=== PATIENT | female | born 1995 | race Caucasian/White ===

== ENCOUNTER 2016-12-28 20:04 | Emergency (ER) | payer OTHER ==
[~2016-12-28] VITALS: Ht 167.6 cm; Wt 140.9 kg
[~2016-12-28 20:04] MED LIST: BIRTH CONTROL IMPLAN; IBUPROFEN800 MG PO; KEFLEX500 MG PO; NAPROSYN500 MG PO; NEXPLANON68 MG SC; OXYCODONE-APAP1 EACH PO; PERCOCET 5/31 TABLET PO; PRENATAL TABLE1 EACH PO; TRI-SPRINTEC1 EACH PO; ZOFRAN ODT8 MG PO
[2016-12-28 21:21] LABS: ADD MIUA? NO; BILIRUBIN NEGATIVE; BLOOD NEGATIVE; COLOR YELLOW ((YELLOW)); GLUCOSE (STRIP) NEGATIVE; KETONES NEGATIVE; LEUKOCYTES NEGATIVE; NITRITE NEGATIVE; PROTEIN (STRIP) NEGATIVE; SPECIFIC GRAVITY 1.018 (1.000-1.030); UCUL ADDED? NO
[2016-12-28 21:30] LABS: HEMATOCRIT 39.8 % (36.0-46.0); MCH 27.7 PG (29.0-34.0); MCHC 32.9 G/DL (30.0-36.0); MCV 84.1 FL (83-99); MEAN PLAT.VOLUME 9.9 uM^3 (9.5-12.4); PLATELET COUNT 303 K/uL (156-360); RBC DIS.WIDTH-CV 13.4 % (11.8-14.6); RBC DIS.WIDTH-SD 41.2 % (39-53); RED BLOOD COUNT 4.73 M/uL (3.80-5.20); WHITE BLOOD COUNT 10.8 K/uL (4.1-10.2)
[2016-12-28 21:40] LABS: CHLORIDE 108 mEq/L (99-109); SODIUM 142 mEq/L (136-147)
[2016-12-28 21:42] LABS: GLUCOSE 106 mg/dL (70-99)
[2016-12-28 21:44] LABS: ANION GAP 10 MEQ/L (2-14); TOTAL BILIRUBIN 0.4 mg/dL (0.0-1.0)
[2016-12-28 21:46] LABS: ALKALINE PHOSPHATASE 78 IU/L (3-129); GFR ESTIMATE (CALCULATED) > 59 mL/min/
[2016-12-28 21:47] LABS: UREA NITROGEN (BUN) 8 mg/dL (9-23)
[2016-12-28 21:55] LABS: QUANTITATIVE HCG < 4.0 MIU/ML
[2016-12-28] MEDS ORDERED: MOTION RELIEF25 MG PO (22:09)
[2016-12-28] MEDS ORDERED: CEFDINIR300 MG PO (22:09)
[2016-12-28 22:42] VITALS: BP 137/76
== END 2016-12-28 22:58 | disposition home or self-care (01) ==
LOC: EME 20:04
DX: H66.92 Otitis media, unspecified, left ear (principal); R42 Dizziness and giddiness
CPT/HCPCS: 80053; 81003; 84702; 85027; 99281; 99284

== ENCOUNTER 2017-05-26 20:13 | Emergency (ER) | payer OTHER ==
[~2017-05-26] VITALS: Ht 167.6 cm; Wt 141.4 kg
[~2017-05-26 20:13] MED LIST changes: +CEFDINIR300 MG PO; +MOTION RELIEF25 MG PO
[2017-05-26 23:40] LABS: HEMATOCRIT 41.9 % (36.0-46.0); MCH 27.3 PG (29.0-34.0); MCHC 32.9 G/DL (30.0-36.0); MEAN PLAT.VOLUME 10.1 uM^3 (9.5-12.4); PLATELET COUNT 300 K/uL (156-360); RBC DIS.WIDTH-CV 13.9 % (11.8-14.6); RBC DIS.WIDTH-SD 41.9 % (39-53); RED BLOOD COUNT 5.05 M/uL (3.80-5.20); WHITE BLOOD COUNT 11.3 K/uL (4.1-10.2)
[2017-05-26 23:52] LABS: CHLORIDE 110 mEq/L (99-109); POTASSIUM 3.7 mEq/L (3.7-5.4); SODIUM 140 mEq/L (136-147)
[2017-05-26 23:55] LABS: GLUCOSE 122 mg/dL (70-99)
[2017-05-26 23:56] LABS: ANION GAP 8 MEQ/L (2-14)
[2017-05-26 23:57] LABS: TOTAL BILIRUBIN 0.5 mg/dL (0.0-1.0)
[2017-05-26 23:58] LABS: ALKALINE PHOSPHATASE 83 IU/L (3-129); GFR ESTIMATE (CALCULATED) > 59 mL/min/
[2017-05-26 23:59] LABS: UREA NITROGEN (BUN) 13 mg/dL (9-23)
[2017-05-26 23:59] LABS: ADD MIUA? YES; BILIRUBIN NEGATIVE; BLOOD NEGATIVE; COLOR YELLOW ((YELLOW)); GLUCOSE (STRIP) NEGATIVE; KETONES NEGATIVE; LEUKOCYTES NEGATIVE; NITRITE NEGATIVE; PROTEIN (STRIP) NEGATIVE; SPECIFIC GRAVITY 1.031 (1.000-1.030)
[2017-05-27 00:02] LABS: LIPASE 3 U/L (1.0-51.0); QUANTITATIVE HCG < 4.0 MIU/ML
[2017-05-27 00:04] LABS: BACTERIA NONE SEEN /HPF; CALCIUM OXALATE CRYSTALS 2+ /HPF; EPITHELIAL CELLS 2+ /HPF; MUCUS TRACE /LPF; RED BLOOD CELLS 0-5 /HPF (0-5); WHITE BLOOD CELLS 0-5 /HPF (0-5)
[2017-05-27] MEDS ORDERED: ZOFRAN ODT4 MG PO (00:17)
[2017-05-27] MEDS ORDERED: BENTYL20 MG PO (00:17)
[2017-05-27 00:32] VITALS: BP 119/70
== END 2017-05-27 00:39 | disposition home or self-care (01) ==
LOC: EME 20:13
PROVIDERS: Nurse Practitioner Family
DX: R10.32 Left lower quadrant pain (principal); R11.2 Nausea with vomiting, unspecified; R42 Dizziness and giddiness
CPT/HCPCS: 80053; 81003; 83690; 84702; 85027; 99281; 99284

== ENCOUNTER 2017-08-12 21:14 | Emergency (ER) | payer OTHER ==
[~2017-08-12] VITALS: Ht 167.6 cm; Wt 142.2 kg
[~2017-08-12 21:14] MED LIST changes: +BENTYL20 MG PO; +ZOFRAN ODT4 MG PO
[2017-08-12 21:37] LABS: HEMATOCRIT 39.5 % (36.0-46.0); HEMOGLOBIN 13.2 G/DL (11.9-15.5); MCH 27.7 PG (29.0-34.0); MCHC 33.4 G/DL (30.0-36.0); MCV 82.8 FL (83-99); PLATELET COUNT 322 K/uL (156-360); RBC DIS.WIDTH-CV 13.8 % (11.8-14.6); RBC DIS.WIDTH-SD 41.6 % (39-53); RED BLOOD COUNT 4.77 M/uL (3.80-5.20)
[2017-08-12 21:46] LABS: CHLORIDE 109 mEq/L (99-109); SODIUM 139 mEq/L (136-147)
[2017-08-12 21:48] LABS: GLUCOSE 108 mg/dL (70-99); TOTAL PROTEIN 6.3 g/dL (6.4-8.3)
[2017-08-12 21:49] LABS: APPEARANCE CLEAR ((CLEAR)); BILIRUBIN NEGATIVE; BLOOD NEGATIVE; COLOR YELLOW ((YELLOW)); GLUCOSE (STRIP) NEGATIVE; KETONES NEGATIVE; LEUKOCYTES NEGATIVE; NITRITE NEGATIVE; PROTEIN (STRIP) NEGATIVE; SPECIFIC GRAVITY 1.024 (1.000-1.030); UCUL ADDED? NO
[2017-08-12 21:50] LABS: TOTAL BILIRUBIN 0.6 mg/dL (0.0-1.0)
[2017-08-12 21:51] LABS: ALKALINE PHOSPHATASE 71 IU/L (3-129)
[2017-08-12 21:52] LABS: CREATININE 0.8 mg/dL (0.6-1.3); GFR ESTIMATE (CALCULATED) > 59 mL/min/
[2017-08-12 21:53] LABS: AST (GOT) 12 IU/L (2-34); UREA NITROGEN (BUN) 9 mg/dL (9-23)
[2017-08-12 21:55] LABS: ALT (GPT) 13 IU/L (3-49)
[2017-08-12 22:00] LABS: QUANTITATIVE HCG 5894.1 MIU/ML
[2017-08-12 22:37] LABS: LIPASE 3 U/L (1.0-51.0)
[2017-08-12] MEDS ORDERED: ZOFRAN4 MG PO (23:48)
[2017-08-12 23:51] VITALS: BP 166/90
== END 2017-08-12 23:52 | disposition home or self-care (01) ==
LOC: EME 21:14 → RME 21:14
DX: O21.9 Vomiting of pregnancy, unspecified (principal); R10.11 Right upper quadrant pain; R10.13 Epigastric pain; M54.9 Dorsalgia, unspecified; Z3A.08 8 weeks gestation of pregnancy
CPT/HCPCS: 76705; 76801; 80053; 81003; 83690; 84702; 85027; 99281; 99284

== ENCOUNTER 2017-09-14 22:11 | Emergency (ER) | payer OTHER ==
[~2017-09-14] VITALS: Ht 167.6 cm; Wt 138.5 kg
[~2017-09-14 22:11] MED LIST changes: +ZOFRAN4 MG PO
[2017-09-14 23:52] LABS: HEMATOCRIT 36.4 % (36.0-46.0); HEMOGLOBIN 12.4 G/DL (11.9-15.5); MCH 28.1 PG (29.0-34.0); MCHC 34.1 G/DL (30.0-36.0); MCV 82.4 FL (83-99); PLATELET COUNT 255 K/uL (156-360); RBC DIS.WIDTH-CV 13.5 % (11.8-14.6); RBC DIS.WIDTH-SD 40.4 % (39-53); RED BLOOD COUNT 4.42 M/uL (3.80-5.20); WHITE BLOOD COUNT 10.6 K/uL (4.1-10.2)
[2017-09-15 00:02] LABS: ALBUMIN 3.8 g/dL (3.2-4.8); CHLORIDE 107 mEq/L (99-109); SODIUM 138 mEq/L (136-147)
[2017-09-15 00:04] LABS: GLUCOSE 99 mg/dL (70-99); TOTAL PROTEIN 6.1 g/dL (6.4-8.3)
[2017-09-15 00:05] LABS: APPEARANCE CLEAR ((CLEAR)); BILIRUBIN NEGATIVE; BLOOD NEGATIVE; COLOR YELLOW ((YELLOW)); GLUCOSE (STRIP) NEGATIVE; KETONES NEGATIVE; LEUKOCYTES TRACE; NITRITE NEGATIVE; PROTEIN (STRIP) NEGATIVE; SPECIFIC GRAVITY 1.027 (1.000-1.030); UROBILINOGEN 0.2 MG/DL (0.2-1.0)
[2017-09-15 00:06] LABS: TOTAL BILIRUBIN 0.9 mg/dL (0.0-1.0)
[2017-09-15 00:07] LABS: ALKALINE PHOSPHATASE 75 IU/L (3-129)
[2017-09-15 00:08] LABS: CREATININE 0.6 mg/dL (0.6-1.3); GFR ESTIMATE (CALCULATED) > 59 mL/min/
[2017-09-15 00:09] LABS: AST (GOT) 10 IU/L (2-34); UREA NITROGEN (BUN) 8 mg/dL (9-23)
[2017-09-15 00:11] LABS: ALT (GPT) 14 IU/L (3-49)
[2017-09-15 00:18] LABS: BACTERIA RARE /HPF; EPITHELIAL CELLS 1+ /HPF; MUCUS 1+ /LPF; RED BLOOD CELLS 0-5 /HPF (0-5); UCUL ADDED? YES
[2017-09-15] MEDS ORDERED: ZOFRAN ODT4 MG PO (01:37)
[2017-09-15] MEDS ORDERED: DICLEGIS DR 101 EACH PO (01:37)
[2017-09-15] MEDS ORDERED: KEFLEX500 MG PO (01:40)
[2017-09-15 01:51] VITALS: BP 124/83
== END 2017-09-15 01:51 | disposition home or self-care (01) ==
LOC: EME 22:11
PROVIDERS: Physician Assistant
DX: O21.9 Vomiting of pregnancy, unspecified (principal); O23.41 Unspecified infection of urinary tract in pregnancy, first trimester; Z3A.10 10 weeks gestation of pregnancy
CPT/HCPCS: 80053; 81003; 85027; 87086; 87502; 99281; 99285; J2405; J7030

== ENCOUNTER 2017-12-03 19:59 | Emergency (ER) | payer OTHER ==
[~2017-12-03] VITALS: Ht 172.7 cm; Wt 138.6 kg
[~2017-12-03 19:59] MED LIST changes: +DICLEGIS DR 101 EACH PO
[2017-12-03 20:52] LABS: HEMATOCRIT 34.4 % (36.0-46.0); HEMOGLOBIN 11.7 G/DL (11.9-15.5); MCH 28.1 PG (29.0-34.0); MCV 82.5 FL (83-99); PLATELET COUNT 257 K/uL (156-360); RBC DIS.WIDTH-CV 13.9 % (11.8-14.6); RBC DIS.WIDTH-SD 41.5 % (39-53); RED BLOOD COUNT 4.17 M/uL (3.80-5.20); WHITE BLOOD COUNT 12.3 K/uL (4.1-10.2)
[2017-12-03 21:11] LABS: CHLORIDE 108 MEQ/L (99-109); POTASSIUM 3.7 MEQ/L (3.7-5.4); SODIUM 139 MEQ/L (136-147)
[2017-12-03 21:17] LABS: CREATININE 0.7 MG/DL (0.6-1.3); GFR ESTIMATE (CALCULATED) > 59 mL/min/; GLUCOSE 107 mg/dL (70-99); UREA NITROGEN (BUN) 6 mg/dL (9-23)
[2017-12-03] MEDS ORDERED: PRENATAL TABLE1 EAC3 PO (22:19)
[2017-12-03] MEDS ORDERED: VENTOLIN HFA18 GM IH (22:27)
[2017-12-03] MEDS ORDERED: AMOXICILLIN875 MG PO (22:27)
[2017-12-03 22:39] VITALS: BP 120/70
== END 2017-12-03 22:39 | disposition home or self-care (01) ==
LOC: EME 19:59
DX: O99.512 Diseases of the respiratory system complicating pregnancy, second trimester (principal); J06.9 Acute upper respiratory infection, unspecified; Z3A.22 22 weeks gestation of pregnancy; Z87.891 Personal history of nicotine dependence; Z90.49 Acquired absence of other specified parts of digestive tract; Z88.7 Allergy status to serum and vaccine
CPT/HCPCS: 71046; 80048; 85027; 99281; 99284

== ENCOUNTER 2017-12-11 23:28 | Emergency (ER) | payer OTHER ==
[~2017-12-11] VITALS: Ht 172.7 cm; Wt 138.9 kg
[~2017-12-11 23:28] MED LIST changes: +AMOXICILLIN875 MG PO; +PRENATAL TABLE1 EAC3 PO; +VENTOLIN HFA18 GM IH
[2017-12-12 00:51] LABS: APPEARANCE CLEAR ((CLEAR)); BILIRUBIN NEGATIVE; BLOOD NEGATIVE; COLOR YELLOW ((YELLOW)); GLUCOSE (STRIP) NEGATIVE; KETONES NEGATIVE; LEUKOCYTES NEGATIVE; NITRITE NEGATIVE; PROTEIN (STRIP) NEGATIVE; SPECIFIC GRAVITY 1.028 (1.000-1.030); UCUL ADDED? NO
[2017-12-12 01:56] VITALS: BP 93/68
== END 2017-12-12 02:01 | disposition home or self-care (01) ==
LOC: EME 23:28
PROVIDERS: Emergency Medicine
DX: O99.89 Other specified diseases and conditions complicating pregnancy, childbirth and the puerperium (principal); R10.32 Left lower quadrant pain; M54.5 Low back pain; Z3A.24 24 weeks gestation of pregnancy; Z88.7 Allergy status to serum and vaccine
CPT/HCPCS: 76805; 81003; 99281; 99284

== ENCOUNTER 2018-01-05 17:31 | Outpatient (CLI) | payer OTHER ==
[~2018-01-05] VITALS: Ht 172.7 cm; Wt 137.8 kg
[2018-01-05 17:43] VITALS: BP 106/52
[2018-01-05 17:44] VITALS: BP 106/52
[2018-01-05 19:05] VITALS: BP 106/49
== END 2018-01-05 23:32 | disposition home or self-care (01) ==
LOC: LDRP-OP 17:31 → 2WEST 17:33 → LDRP-OP 05-13 08:39
DX: O9A.212 Injury, poisoning and certain other consequences of external causes complicating pregnancy, second trimester (principal); Z3A.25 25 weeks gestation of pregnancy; W01.0XXA Fall on same level from slipping, tripping and stumbling without subsequent striking against object, initial encounter; Y93.F9 Activity, other caregiving; Y92.009 Unspecified place in unspecified non-institutional (private) residence as the place of occurrence of the external cause
CPT/HCPCS: 59025; 76805; G0378

== ENCOUNTER 2018-02-19 11:39 | Outpatient (CLI) | payer OTHER ==
[2018-02-19 12:04] VITALS: BP 94/52
[2018-02-19 12:44] LABS: BILIRUBIN NEGATIVE; BLOOD NEGATIVE; COLOR AMBER ((YELLOW)); GLUCOSE (STRIP) NEGATIVE; KETONES NEGATIVE; LEUKOCYTES NEGATIVE; NITRITE NEGATIVE; PROTEIN (STRIP) NEGATIVE; SPECIFIC GRAVITY 1.023 (1.000-1.030)
[2018-02-19 12:45] LABS: BASOPHIL (%) 0.4 % (0-1); BASOPHIL COUNT 0.1 K/uL (0-0.1); EOSINOPHIL (%) 1.2 % (0-5); EOSINOPHIL COUNT 0.2 K/uL (0-0.3); HEMATOCRIT 34.2 % (36.0-46.0); HEMOGLOBIN 11.3 G/DL (11.9-15.5); IMMATURE GRANULOCYTE (%) 0.6 % (0.0-0.7); LYMPHOCYTE (%) 15.4 % (15-42); LYMPHOCYTE COUNT 1.9 K/uL (1.0-2.8); MCH 27.5 PG (29.0-34.0); MCV 83.2 FL (83-99); MONOCYTE (%) 5.4 % (3-12); MONOCYTE COUNT 0.7 K/uL (0-0.8); NEUTROPHIL COUNT 9.4 K/uL (1.8-6.4); PLATELET COUNT 262 K/uL (156-360); RBC DIS.WIDTH-CV 13.8 % (11.8-14.6); RED BLOOD COUNT 4.11 M/uL (3.80-5.20); WHITE BLOOD COUNT 12.1 K/uL (4.1-10.2)
[2018-02-19 12:49] LABS: SOURCE URINE
[2018-02-19 12:49] LABS: APPEARANCE CLEAR ((CLEAR)); UCUL ADDED? NO
[2018-02-19 18:02] LABS: CANDIDA DNA PROBE POSITIVE; GARDNERELLA DNA PROBE NEGATIVE; TRICHOMONAS DNA PROBE NEGATIVE
[2018-02-20 13:29] LABS: CHLAMYDIA TRACHOMATIS NEGATIVE; NEISSERIA GONORRHOEAE NEGATIVE
== END 2018-02-19 14:02 | disposition home or self-care (01) ==
LOC: LDRP-OP 11:39 → 2WEST 11:40 → LDRP-OP 05-13 00:23
PROVIDERS: Advanced Practice Midwife; Obstetrics & Gynecology
DX: O26.893 Other specified pregnancy related conditions, third trimester (principal); Z3A.32 32 weeks gestation of pregnancy; R10.9 Unspecified abdominal pain
CPT/HCPCS: 59025; 81003; 82731; 85025; 87480; 87491; 87510; 87591; 87660; G0378

== ENCOUNTER 2018-03-06 13:08 | Emergency (ER) | payer OTHER ==
[~2018-03-06] VITALS: Ht 172.7 cm; Wt 139.9 kg
[2018-03-06 14:47] LABS: HEMATOCRIT 33.7 % (36.0-46.0); HEMOGLOBIN 11.5 G/DL (11.9-15.5); MCH 27.7 PG (29.0-34.0); MCHC 34.1 G/DL (30.0-36.0); MCV 81.2 FL (83-99); PLATELET COUNT 250 K/uL (156-360); RBC DIS.WIDTH-CV 13.7 % (11.8-14.6); RBC DIS.WIDTH-SD 40.2 % (39-53); RED BLOOD COUNT 4.15 M/uL (3.80-5.20); WHITE BLOOD COUNT 11.8 K/uL (4.1-10.2)
[2018-03-06 15:02] LABS: ALBUMIN 3.4 g/dL (3.2-4.8)
[2018-03-06 15:03] LABS: CHLORIDE 109 mEq/L (99-109); POTASSIUM 3.8 mEq/L (3.7-5.4); SODIUM 140 mEq/L (136-147)
[2018-03-06 15:05] LABS: GLUCOSE 107 mg/dL (70-99); TOTAL PROTEIN 6.4 g/dL (6.4-8.3)
[2018-03-06 15:08] LABS: ALKALINE PHOSPHATASE 147 IU/L (3-129)
[2018-03-06 15:09] LABS: CREATININE 0.6 mg/dL (0.6-1.3); GFR ESTIMATE (CALCULATED) > 59 mL/min/
[2018-03-06 15:10] LABS: AST (GOT) 16 IU/L (2-34); UREA NITROGEN (BUN) 6 mg/dL (9-23)
[2018-03-06 15:11] LABS: ALT (GPT) 31 IU/L (3-49)
[2018-03-06 15:13] LABS: D-DIMER ELISA < 150.00 ng/mLDDU (<230)
[2018-03-06 15:26] LABS: APPEARANCE SL.HAZY ((CLEAR)); BILIRUBIN NEGATIVE; BLOOD NEGATIVE; COLOR AMBER ((YELLOW)); GLUCOSE (STRIP) NEGATIVE; KETONES NEGATIVE; LEUKOCYTES NEGATIVE; NITRITE NEGATIVE; PROTEIN (STRIP) NEGATIVE; SPECIFIC GRAVITY 1.025 (1.000-1.030)
[2018-03-06 15:43] LABS: BACTERIA RARE /HPF; CALCIUM OXALATE CRYSTALS 1+ /HPF; EPITHELIAL CELLS 2+ /HPF; MUCUS 2+ /LPF; RED BLOOD CELLS 0-5 /HPF (0-5); UCUL ADDED? NO; WHITE BLOOD CELLS 0-5 /HPF (0-5)
[2018-03-06 16:18] VITALS: BP 126/78
== END 2018-03-06 16:18 | disposition home or self-care (01) ==
LOC: EME 13:08
PROVIDERS: Nurse Practitioner Family
DX: R07.89 Other chest pain (principal); S29.011A Strain of muscle and tendon of front wall of thorax, initial encounter; X50.9XXA Other and unspecified overexertion or strenuous movements or postures, initial encounter; Z33.1 Pregnant state, incidental
CPT/HCPCS: 80053; 81003; 85027; 85379; 93005; 99281; 99283

== ENCOUNTER 2018-03-08 20:25 | Outpatient (CLI) | payer OTHER ==
[2018-03-08 20:47] VITALS: BP 130/68
[2018-03-08 22:18] LABS: APPEARANCE SL.HAZY ((CLEAR)); BILIRUBIN NEGATIVE; BLOOD NEGATIVE; COLOR YELLOW ((YELLOW)); GLUCOSE (STRIP) NEGATIVE; KETONES NEGATIVE; LEUKOCYTES NEGATIVE; NITRITE NEGATIVE; PROTEIN (STRIP) NEGATIVE; SPECIFIC GRAVITY 1.016 (1.000-1.030)
[2018-03-08 22:22] LABS: BACTERIA NONE SEEN /HPF; CALCIUM OXALATE CRYSTALS 4+ /HPF; EPITHELIAL CELLS RARE /HPF; MUCUS TRACE /LPF; RED BLOOD CELLS NONE SEEN /HPF (0-5); UCUL ADDED? NO; WHITE BLOOD CELLS 0-5 /HPF (0-5)
[2018-03-08 22:27] LABS: AMPHETAMINE NEGATIVE (500 ng/mL); BARBITURATES NEGATIVE (200 ng/mL); BENZODIAZEPINES NEGATIVE (150 ng/mL); BUPRENORPHINE NEGATIVE (10 ng/mL); COCAINE NEGATIVE (150 ng/mL); METHADONE NEGATIVE (200 ng/mL); METHAMPHETAMINE NEGATIVE (500 ng/mL); OPIATES (MORPHINE) NEGATIVE (100 ng/mL); OXYCODONE NEGATIVE (100 ng/mL); PHENCYCLIDINE NEGATIVE (25 ng/mL); PROPOXYPHENE NEGATIVE (300 ng/mL); THC CANNABINOIDS NEGATIVE (50 ng/mL); TRICYCLIC ANTIDEPRESSANTS NEGATIVE (300 ng/mL)
== END 2018-03-08 22:19 | disposition home or self-care (01) ==
LOC: LDRP-OP 20:25 → 2WEST 20:26 → LDRP-OP 05-13 14:11
PROVIDERS: Advanced Practice Midwife
DX: O26.893 Other specified pregnancy related conditions, third trimester (principal); R10.32 Left lower quadrant pain; Z3A.34 34 weeks gestation of pregnancy
CPT/HCPCS: 59025; 81003; 87086; G0378

== ENCOUNTER 2018-03-18 16:19 | Outpatient (CLI) | payer OTHER ==
[2018-03-18 16:32] VITALS: BP 118/57
[2018-03-18 17:27] VITALS: BP 137/60
[2018-03-18 17:52] LABS: APPEARANCE SL.HAZY ((CLEAR)); BILIRUBIN NEGATIVE; BLOOD NEGATIVE; COLOR YELLOW ((YELLOW)); GLUCOSE (STRIP) NEGATIVE; KETONES NEGATIVE; LEUKOCYTES NEGATIVE; NITRITE NEGATIVE; PROTEIN (STRIP) NEGATIVE; SPECIFIC GRAVITY 1.019 (1.000-1.030)
[2018-03-18 18:04] LABS: BACTERIA NONE SEEN /HPF; EPITHELIAL CELLS RARE /HPF; MUCUS TRACE /LPF; RED BLOOD CELLS 0-5 /HPF (0-5); UCUL ADDED? NO; WHITE BLOOD CELLS 0-5 /HPF (0-5)
[2018-03-18 18:44] LABS: AMPHETAMINE NEGATIVE (500 ng/mL); BARBITURATES NEGATIVE (200 ng/mL); BENZODIAZEPINES NEGATIVE (150 ng/mL); BUPRENORPHINE NEGATIVE (10 ng/mL); COCAINE NEGATIVE (150 ng/mL); METHADONE NEGATIVE (200 ng/mL); METHAMPHETAMINE NEGATIVE (500 ng/mL); OPIATES (MORPHINE) NEGATIVE (100 ng/mL); OXYCODONE NEGATIVE (100 ng/mL); PHENCYCLIDINE NEGATIVE (25 ng/mL); PROPOXYPHENE NEGATIVE (300 ng/mL); THC CANNABINOIDS NEGATIVE (50 ng/mL); TRICYCLIC ANTIDEPRESSANTS NEGATIVE (300 ng/mL)
[2018-03-18 22:20] LABS: CANDIDA DNA PROBE NEGATIVE; GARDNERELLA DNA PROBE NEGATIVE; TRICHOMONAS DNA PROBE NEGATIVE
== END 2018-03-18 19:03 | disposition home or self-care (01) ==
LOC: LDRP-OP 16:19 → 2WEST 16:20 → LDRP-OP 05-11 22:25
PROVIDERS: Advanced Practice Midwife
DX: O47.03 False labor before 37 completed weeks of gestation, third trimester (principal); Z3A.36 36 weeks gestation of pregnancy
CPT/HCPCS: 59025; 81003; 87086; 87480; 87510; 87660; G0378; J7120

== ENCOUNTER 2018-03-26 02:49 | Outpatient (CLI) | payer OTHER ==
[~2018-03-26] VITALS: Ht 172.7 cm; Wt 141.9 kg
[2018-03-26 03:02] VITALS: BP 123/77
[2018-03-26] MEDS ORDERED: TYLENOL EXTRA500 MG PO (03:08)
== END 2018-03-26 04:15 | disposition home or self-care (01) ==
LOC: LDRP-OP 02:49 → 2WEST 02:50 → LDRP-OP 05-11 19:22
DX: O26.893 Other specified pregnancy related conditions, third trimester (principal); M54.9 Dorsalgia, unspecified; Z3A.36 36 weeks gestation of pregnancy
CPT/HCPCS: 59025; G0378

== ENCOUNTER 2018-04-02 11:32 | Outpatient (CLI) | payer OTHER ==
[~2018-04-02 11:32] MED LIST changes: +TYLENOL EXTRA500 MG PO
[2018-04-02 11:50] VITALS: BP 125/60
[2018-04-03] MEDS ORDERED: TUMS500 MG PO (15:50)
== END 2018-04-02 13:15 | disposition home or self-care (01) ==
LOC: LDRP-OP 11:32 → 2WEST 11:33 → LDRP-OP 05-11 04:30
DX: O26.893 Other specified pregnancy related conditions, third trimester (principal); O21.9 Vomiting of pregnancy, unspecified; Z3A.38 38 weeks gestation of pregnancy; O34.219 Maternal care for unspecified type scar from previous cesarean delivery
CPT/HCPCS: 59025; G0378